=== PATIENT | male | born 2000 | race Caucasian/White ===

== ENCOUNTER 2020-11-01 06:57 | Emergency (ER) | payer OTHER ==
[2020-11-01 07:09] VITALS: BP 134/57
[2020-11-01 07:39] LABS: RAPID STREP SCREEN Negative (Negative)
--- NOTE | 2020-11-01 07:50 | ED Physician Documentation ---
History of Present Illness - Stated complaint Stated Complaint: THROAT PX/EAR PX/RUNNY NOSE - Chief complaint Chief Complaint: Heent - History obtained from History obtained from: Patient - Additonal information Additional information: Patient comes emergency department chief complaint of runny nose, sore throat, and cough. He states that he was up most the night last night because he was uncomfortable. He denies measured fevers. No chills. He states symptoms started 2 nights ago while he was on an overnight watch at his job at the [employer]. He also complains that his ears feel very "pressurized", especially on the left side. He states that he has not had any known sick contacts other than his who had a stuffy nose a few days ago. No Covid exposure. Patient is vaccinated. He states he is mainly here for a work note and also, he is concerned about strep pharyngitis because he states he gets it "a lot". No other complaints at this time. Review of Systems Ten Systems: 10 systems reviewed and negative Constitutional: reports: Reviewed and negative Eyes: reports: Reviewed and negative Ears: reports: Ear pain (Pressure) Nose: reports: Rhinorrhea / runny nose, Congestion Throat: reports: Sore throat Cardiac: reports: Reviewed and negative Respiratory: reports: Reviewed and negative GI: reports: Reviewed and negative : reports: Reviewed and negative Skin: reports: Reviewed and negative Musculoskeletal: reports: Reviewed and negative Neurologic: reports: Reviewed and negative Psychiatric: reports: Reviewed and negative Endocrine: reports: Reviewed and negative Immunocompromised: reports: Reviewed and negative PD PAST MEDICAL HISTORY - Past Medical History Cardiovascular: None Respiratory: None Neuro: None Endocrine/Autoimmune: None GI: None : None HEENT: None Psych: None Musculoskeletal: None Derm: None - Past Surgical History Past Surgical History: No - Present Medications Home Medications: Ambulatory Orders Medication Instructions Recorded Confirmed No Known Home Medications 11/01/20 11/01/20 - Allergies Allergies/Adverse Reactions: Allergies Allergy/AdvReac Type Severity Reaction Status Date / Time No Known Drug Allergies Allergy Verified 11/01/20 07:06 - Social History Does the pt smoke?: No Smoking Status: Never smoker Does the pt drink ETOH?: Yes Does the pt have substance abuse?: No - Immunizations Immunizations are current?: No PD ED PE NORMAL - Vitals Vital signs reviewed: Yes - General General: Alert and oriented X 3, No acute distress - HEENT HEENT: Atraumatic, PERRL, EOMI, Ears normal, Moist mucous membranes, Pharynx benign - Neck Neck: Supple, no meningeal sign - Cardiac Cardiac: RRR, No murmur, Strong equal pulses - Respiratory Respiratory: No respiratory distress, Clear bilaterally - Derm Derm: Warm and dry - Extremities Extremities: No deformity - Neuro Neuro: Alert and oriented X 3 - Psych Psych: Normal mood, Normal affect Results - Vitals Vitals: Vital Signs - 24 hr 11/01/20 07:06 Temperature 36.2 C L Heart Rate 86 Respiratory 18 Rate Blood Pressure 134/57 H O2 Saturation 97 Oxygen O2 Source Room air - Labs Labs: Laboratory Tests 11/01/20 07:20 Group A Strep Rapid Negative PD MEDICAL DECISION MAKING - ED course Complexity details: reviewed results, re-evaluated patient, considered differential, d/w patient ED course: Patient was worked up with strep test, which was negative. He was given a work note and indications for return and follow-up. Departure - Departure Disposition: 01 Home, Self Care Clinical Impression: Upper respiratory infection Qualifiers: URI type: unspecified viral URI Qualified Code(s): J06.9 - Acute upper respiratory infection, unspecified Condition: Stable Instructions: ED URI Viral Comments: Your strep test is negative. Forms: Activity restrictions
== END 2020-11-01 08:07 | disposition home or self-care (01) ==
LOC: ED 06:57
DX: J06.9 Acute upper respiratory infection, unspecified (principal); B97.89 Other viral agents as the cause of diseases classified elsewhere
CPT/HCPCS: 87070; 87430; 99283

== ENCOUNTER 2021-08-31 10:11 | Emergency (ER) | payer OTHER ==
[2021-08-31 13:26] VITALS: BP 148/60
--- NOTE | 2021-08-31 13:49 | ED Physician Documentation ---
PD HPI URI - Stated complaint Stated Complaint: RUNNY NOSE/SORE THROAT - Chief complaint Chief Complaint: Heent - History obtained from History obtained from: Patient - History of Present Illness Pain level max: 5 Pain level now: 4 Associated symptoms: Nasal congestion, Rhinorrhea, Sore throat, Dry cough. No: Fever, Chills Contributing factors: Sick contact (Entire family sick with same) Recently seen: Not recently seen - Additional information Additional information: Patient is a 21-year-old male who presents to the emergency department with cough, congestion, sore throat for the past 3 days. Entire family is sick with same. Worse with swallowing. He is taking ibuprofen without relief Patient states that he has a history of recurrent strep pharyngitis. Has not taken a COVID test. Review of Systems Constitutional: denies: Fever Nose: reports: Rhinorrhea / runny nose, Congestion Throat: reports: Sore throat Respiratory: reports: Cough GI: denies: Vomiting, Diarrhea Skin: denies: Rash Musculoskeletal: denies: Neck pain, Back pain Neurologic: denies: Headache PD PAST MEDICAL HISTORY - Past Medical History Cardiovascular: None Respiratory: None Neuro: None Endocrine/Autoimmune: None GI: None : None HEENT: None Psych: None Musculoskeletal: None Derm: None - Past Surgical History Past Surgical History: No - Present Medications Home Medications: Ambulatory Orders Medication Instructions Recorded Confirmed Benzonatate [Tessalon] 200 mg PO TID PRN #30 cap 08/31/21 Cetirizine HCl/Pseudoephedrine 1 each PO BID PRN #30 ea 08/31/21 [Zyrtec-D Tablet] - Allergies Allergies/Adverse Reactions: Allergies Allergy/AdvReac Type Severity Reaction Status Date / Time No Known Drug Allergies Allergy Verified 08/31/21 10:21 - Social History Does the pt smoke?: No Smoking Status: Never smoker Does the pt drink ETOH?: Yes Does the pt have substance abuse?: No - Immunizations Immunizations are current?: No PD ED PE NORMAL - Vitals Vital signs reviewed: Yes - General General: Alert and oriented X 3, No acute distress - HEENT HEENT: PERRL, Ears normal, Moist mucous membranes, Other (Mild posterior pharyngeal erythema without tonsillar exudates. Uvula midline. Normal phonation. No trismus) - Neck Neck: Supple, no meningeal sign, No adenopathy - Cardiac Cardiac: RRR, Strong equal pulses - Respiratory Respiratory: No respiratory distress, Clear bilaterally - Abdomen Abdomen: Soft, Non tender, Non distended - Derm Derm: Warm and dry, No rash - Extremities Extremities: No edema - Neuro Neuro: Alert and oriented X 3 - Psych Psych: Normal mood, Normal affect Results - Vitals Vitals: Vital Signs - 24 hr 08/31/21 08/31/21 10:20 13:24 Temperature 37.1 C 36.6 C Heart Rate 67 84 Respiratory 14 17 Rate Blood Pressure 136/63 H 148/60 H O2 Saturation 97 98 Oxygen O2 Source Room air - Labs Labs: Laboratory Tests 08/31/21 13:23 Group A Strep Rapid Negative PD MEDICAL DECISION MAKING - ED course Complexity details: reviewed results, re-evaluated patient, considered differential, d/w patient ED course: Patient is well-appearing, nontoxic. Afebrile. Rapid strep is negative. COVID testing sent. Entire family sick with same. We will continue supportive care and have him follow-up with his doctor for further care. Patient counseled regarding signs and symptoms for which I believe and urgent re-evaluation would be necessary. Patient with good understanding of and agreement to plan and is comfortable going home at this time This document was made in part using voice recognition software. While efforts are made to proofread this document, sound alike and grammatical errors may occur. Departure - Departure Disposition: 01 Home, Self Care Clinical Impression: Viral URI Condition: Good Instructions: ED Viral Syndrome Follow-Up: your,doctor in 1 week [Other] Prescriptions: Benzonatate [Tessalon] 200 mg PO TID PRN #30 cap PRN Reason: Cough Cetirizine HCl/Pseudoephedrine [Zyrtec-D Tablet] 1 each PO BID PRN #30 ea PRN Reason: nasal congestion Comments: Please follow-up with your doctor for further care. Return if you worsen. Drink plenty of fluids and rest. Your rapid strep is negative. You have a COVID test pending. You can check the results of this tomorrow on the patient portal. No work until you have a negative COVID test. Isolation precautions for COVID Day 0 is your first day of symptoms or a positive viral test. Day 1 is the first full day after your symptoms developed or your test specimen was collected. If you have COVID-19 or have symptoms, isolate for at least 5 days. IF YOU: Tested positive for COVID-19 or have symptoms, regardless of vaccination status Stay home for at least 5 days Stay home for 5 days and isolate from others in your home. Wear a well-fitting mask if you must be around others in your home. Do not travel. Ending isolation if you had symptoms End isolation after 5 full days if you are fever-free for 24 hours (without the use of fever-reducing medication) and your symptoms are improving. Ending isolation if you did NOT have symptoms End isolation after at least 5 full days after your positive test. If you got very sick from COVID-19 or have a weakened immune system You should isolate for at least 10 days. Consult your doctor before ending is olation. Take precautions until day 10 Wear a well-fitting mask Wear a well-fitting mask for 10 full days any time you are around others inside your home or in public. Do not go to places where you are unable to wear a mask. Do not travel Do not travel until a full 10 days after your symptoms started or the date your positive test was taken if you had no symptoms. Avoid being around people who are more likely to get very sick from COVID-19. Discharge Date/Time: 08/31/21 14:22
[2021-08-31 13:53] LABS: RAPID STREP SCREEN Negative (Negative)
--- NOTE | 2021-09-01 18:59 | ED Physician Documentation ---
ED Addendum - Addendum Addendum: 09/01/21 18:59 Patient request that the medication she sent to [facility] in [place] rather than [facility]. His 's strep test came back positive for group F strep, therefore we will add antibiotics as well Departure - Departure Disposition: 01 Home, Self Care Clinical Impression: Viral URI Condition: Good Instructions: ED Viral Syndrome Follow-Up: your,doctor in 1 week [Other] Prescriptions: Penicillin V Potassium 500 mg PO Q6HR #40 tablet Benzonatate [Tessalon] 200 mg PO TID PRN #30 cap PRN Reason: Cough Cetirizine HCl/Pseudoephedrine [Zyrtec-D Tablet] 1 each PO BID PRN #30 ea PRN Reason: nasal congestion Comments: Please follow-up with your doctor for further care. Return if you worsen. Drink plenty of fluids and rest. Your rapid strep is negative. You have a COVID test pending. You can check the results of this tomorrow on the patient portal. No work until you have a negative COVID test. Isolation precautions for COVID Day 0 is your first day of symptoms or a positive viral test. Day 1 is the first full day after your symptoms developed or your test specimen was collected. If you have COVID-19 or have symptoms, isolate for at least 5 days. IF YOU: Tested positive for COVID-19 or have symptoms, regardless of vaccination status Stay home for at least 5 days Stay home for 5 days and isolate from others in your home. Wear a well-fitting mask if you must be around others in your home. Do not travel. Ending isolation if you had symptoms End isolation after 5 full days if you are fever-free for 24 hours (without the use of fever-reducing medication) and your symptoms are improving. Ending isolation if you did NOT have symptoms End isolation after at least 5 full days after your positive test. If you got very sick from COVID-19 or have a weakened immune system You should isolate for at least 10 days. Consult your doctor before ending isolation. Take precautions until day 10 Wear a well-fitting mask Wear a well-fitting mask for 10 full days any time you are around others inside your home or in public. Do not go to places where you are unable to wear a mask. Do not travel Do not travel until a full 10 days after your symptoms started or the date your positive test was taken if you had no symptoms. Avoid being around people who are more likely to get very sick from COVID-19. Discharge Date/Time: 08/31/21 14:22
== END 2021-08-31 14:22 | disposition home or self-care (01) ==
LOC: ED 10:11
DX: J06.9 Acute upper respiratory infection, unspecified (principal); Z20.822 Contact with and (suspected) exposure to COVID-19
CPT/HCPCS: 87070; 87430; 99283

== ENCOUNTER 2021-10-10 11:58 | Emergency (ER) | payer OTHER ==
[2021-10-10 12:06] VITALS: BP 144/66
[2021-10-10] MEDS ORDERED: NIRMATRELVIR/RITONAVIR PREPACK PO STA (12:25)
--- NOTE | 2021-10-10 12:30 | ED Physician Documentation ---
History of Present Illness - Stated complaint Stated Complaint: THORAT PX/COUGH/TASTE AND SMELL LOSS - Chief complaint Chief Complaint: Resp - Additonal information Additional information: 21-year-old male presents emergency department for evaluation of dry cough and acute loss of taste and smell that began this morning. His at home has had some cough and congestion for the preceding few days. She has tested negative for COVID-19. He presents to the emergency department concerned that he has COVID despite his 's negative test. She presents here for treatment as well Patient is vaccinated though not boosted. No history of hypertension, diabetes or immune compromise. No tobacco history. He is obese. Review of Systems Constitutional: reports: Myalgias, Fatigue. denies: Fever Nose: reports: Other (Loss of taste and smell) Throat: reports: Sore throat Cardiac: denies: Chest pain / pressure, Palpitations Respiratory: reports: Cough. denies: Dyspnea, Hemoptysis, Wheezing GI: reports: Reviewed and negative : reports: Reviewed and negative Skin: reports: Reviewed and negative PD PAST MEDICAL HISTORY - Past Medical History Cardiovascular: None Respiratory: None Neuro: None Endocrine/Autoimmune: None GI: None : None HEENT: None Psych: None Musculoskeletal: None Derm: None - Past Surgical History Past Surgical History: No - Present Medications Home Medications: Ambulatory Orders Medication Instructions Recorded Confirmed DULoxetine [Cymbalta] 40 mg PO DAILY 10/10/21 10/10/21 - Allergies Allergies/Adverse Reactions: Allergies Allergy/AdvReac Type Severity Reaction Status Date / Time No Known Drug Allergies Allergy Verified 10/10/21 12:06 - Social History Does the pt smoke?: No Smoking Status: Never smoker Does the pt drink ETOH?: Yes Does the pt have substance abuse?: No - Immunizations Immunizations are current?: No PD ED PE NORMAL - General General: Alert and oriented X 3, No acute distress, Well developed/nourished - HEENT HEENT: Atraumatic, Ears normal, Moist mucous membranes - Neck Neck: Supple, no meningeal sign, No adenopathy - Cardiac Cardiac: RRR, No murmur - Respiratory Respiratory: No respiratory distress, Clear bilaterally - Back Back: No spinal TTP - Derm Derm: Normal color, Warm and dry - Extremities Extremities: No deformity - Neuro Neuro: Alert and oriented X 3, 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 Eye Opening: Spontaneous Motor: Obeys Commands Verbal: Oriented GCS Score: 15 Results - Vitals Vitals: Vital Signs - 24 hr 10/10/21 10/10/21 12:03 12:49 Temperature 36.3 C L 36.3 C L Heart Rate 92 92 Respiratory 16 16 Rate Blood Pressure 144/66 H 144/66 H O2 Saturation 98 98 Oxygen O2 Source Room air - Labs Labs: Laboratory Tests 10/10/21 12:30 SARS-CoV-2 (PCR) NOT DETECTED PD MEDICAL DECISION MAKING - ED course Complexity details: considered differential, d/w patient ED course: Well-appearing 19-year-old male presents emergency department for evaluation of acute onset cough loss of taste and smell that began this morning. His at home has been sick with cough and congestion for the preceding few days. He is vaccinated for COVID-19. He does not carry a history of diabetes or immune compromise or known problems with his heart or lungs however he is obese. Given this finding I did discuss with him the option of EUA use of pack Slo-Bid for suspected outpatient treatment of COVID-19. He would like to accept this treatment. COVID swab is pending. Though given the loss of taste and smell, i am very suspicious for COVID 19 infection I expect that it will be positive. Patient Is advised to main quarantine until test results are known. Otherwise emergent return precautions and routine care was discussed 1400: res PCR neg for covid. findings discussed with pt. advised not to take paxlovid. continue to treat as common vold Departure - Departure Disposition: 01 Home, Self Care Clinical Impression: URI (upper respiratory infection) Qualifiers: URI type: unspecified viral URI Qualified Code(s): J06.9 - Acute upper respiratory infection, unspecified Condition: Stable Record reviewed to determine appropriate education?: Yes Instructions: ED Viral Syndrome Comments: Daniele you came to the emergency department today because you lost your sense of taste and smell this morning. This is typical with recent COVID-19 infections. We do have a COVID test pending on you but will start you on a medication called pack Slo-Bid which is FDA approved emergency use authorization for outpatient treatment of COVID-19 infections. We will notify you if your swab is positive. In general you do need to maintain quarantine for about the next week. Drink plenty of fluids and water. Ibuprofen or Tylenol [id number] for body aches. Any throat lozenge can be helpful. If you find that your symptoms are not improving, you have severe chest pain or shortness of air then please return immediately to the ER for second evaluation Discharge Date/Time: 10/10/21 12:49
== END 2021-10-10 12:49 | disposition home or self-care (01) ==
LOC: ED 11:58
DX: J06.9 Acute upper respiratory infection, unspecified (principal); Z20.822 Contact with and (suspected) exposure to COVID-19
CPT/HCPCS: 87635; 99282; 99283; J3490

== ENCOUNTER 2022-04-18 09:14 | Emergency (ER) | payer OTHER ==
--- NOTE | 2022-04-18 10:37 | XRAY Report ---
PROCEDURE: Knee 4 View RT INDICATIONS: Trauma TECHNIQUE: 3 views of the right knee(s) were acquired. COMPARISON: None. FINDINGS: Bones: No fractures or dislocations. No suspicious bony lesions. Soft tissues: No joint effusion. No suspicious soft tissue calcifications. IMPRESSION: No acute osseous abnormality. If clinical symptoms persist, consider a follow-up exam in 7-10 days, or advanced imaging such as MRI if there is clinical concern for meniscal or ligamentous injuries. Reviewed by: Arvin Burger MD on 04/18/2022 9:36 AM [facility] Approved by: Arvin Burger MD on 04/18/2022 9:36 AM [facility] Station ID: [id number]
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
[2022-04-18 12:58] VITALS: BP 109/46
== END 2022-04-18 12:58 | disposition home or self-care (01) ==
LOC: ED 09:14
DX: S80.01XA Contusion of right knee, initial encounter (principal); W17.89XA Other fall from one level to another, initial encounter
CPT/HCPCS: 99283

== ENCOUNTER 2022-06-29 16:10 | Emergency (ER) | payer OTHER ==
--- NOTE | 2022-06-29 16:20 | ED Physician Documentation ---
PD HPI NVD - Stated complaint Stated Complaint: BODYACHES/VOMITING/COUGH - Chief complaint Chief Complaint: Abd Pain - History obtained from History obtained from: Patient - History of Present Illness Timing - onset: Yesterday Timing - duration: Days (2) Timing - details: Abrupt onset, Still present (Onset yesterday of body aches, cough, general weakness and nausea. Continues today with now vomiting and some diarrhea and crampy abdominal pain. General weakness and feeling lightheaded this afternoon.) Associated symptoms: Fever, Abdominal pain (diffuse cramping). No: Hematemesis, Melena Contributing factors: No: Sick contact, Bad food, Alcohol use Similar symptoms before: Has not had sx before Recently seen: Not recently seen Review of Systems Constitutional: reports: Fever, Chills, Myalgias (since yesterday), Fatigue Nose: reports: Congestion, Sinus pressure / pain Throat: denies: Sore throat Cardiac: denies: Chest pain / pressure, Palpitations Respiratory: reports: Dyspnea, Cough, Wheezing GI: reports: Abdominal Pain, Nausea, Vomiting, Diarrhea. denies: Hematemesis, B loody / black stool : denies: Dysuria Neurologic: reports: Generalized weakness. denies: Syncope, Altered mental status, Headache PD PAST MEDICAL HISTORY - Past Medical History Cardiovascular: None Respiratory: None Neuro: None Endocrine/Autoimmune: None GI: None : None HEENT: None Psych: None Musculoskeletal: None Derm: None - Past Surgical History Past Surgical History: No - Present Medications Home Medications: Ambulatory Orders Medication Instructions Recorded Confirmed DULoxetine [Cymbalta] 40 mg PO DAILY 10/10/21 10/10/21 Diphenoxylate/Atropine [Lomotil] 1 each PO QID PRN #12 tablet 06/29/22 HYDROcod/ACETAM 5/325 [[place] 5/325] 1 ea PO Q6H PRN #12 tablet 06/29/22 Ondansetron Odt [Zofran] 4 mg TL Q6H PRN #10 tablet 06/29/22 - Allergies Allergies/Adverse Reactions: Allergies Allergy/AdvReac Type Severity Reaction Status Date / Time No Known Drug Allergies Allergy Verified 06/29/22 16:17 - Social History Does the pt smoke?: No Smoking Status: Never smoker Does the pt drink ETOH?: Yes Does the pt have substance abuse?: No - Immunizations Immunizations are current?: No PD ED PE NORMAL - Vitals Vital signs reviewed: Yes - General General: Alert and oriented X 3, Well developed/nourished, Other (appears uncomfortable due to nausea and abd cramping. ) - HEENT HEENT: Ears normal, Pharynx benign. No: Moist mucous membranes - Neck Neck: Supple, no meningeal sign, No adenopathy - Cardiac Cardiac: No: RRR (regular but tachycardic) - Respiratory Respiratory: No: Clear bilaterally - Abdomen Abdomen: Other (mildly distended. Generally tender to palpation and percussion, nonfocal. ). No: Normal bowel sounds (decreased) Results - Vitals Vitals: Vital Signs - 24 hr 06/29/22 06/29/22 06/29/22 16:14 16:54 17:59 Temperature 36.4 C L Heart Rate 108 H 98 90 Respiratory 16 20 22 Rate Blood Pressure 128/64 125/58 L O2 Saturation 97 96 Oxygen O2 Source Room air - Labs Labs: Laboratory Tests 06/29/22 06/29/22 06/29/22 16:30 16:30 16:41 WBC 15.4 H RBC 5.33 Hgb 14.8 Hct 46.1 MCV 86.5 MCH 27.8 MCHC 32.1 RDW 13.9 Plt Count 351 MPV 9.9 Neut # (Auto) 13.2 H Lymph # (Auto) 1.3 L [place] # (Auto) 0.6 Eos # (Auto) 0.2 Baso # (Auto) 0.0 Absolute Nucleated RBC 0.00 Nucleated RBC % 0.0 Sodium 141 Potassium 4.0 Chloride 104 Carbon Dioxide 27 Anion Gap 10.0 BUN 21 H Creatinine 1.1 Estimated GFR (MDRD) 83 L Glucose 98 Calcium 9.4 Total Bilirubin 0.8 AST 97 H ALT 194 H Alkaline Phosphatase 77 Total Protein 8.9 H Albumin 4.6 Globulin 4.3 H Albumin/Globulin Ratio 1.1 Lipase 34 Nasal Adenovirus (PCR) NOT DETECTED Nasal B. parapertussis DNA (PCR) NOT DETECTED Nasal Coronavir 229E PCR NOT DETECTED Nasal Coronavir HKU1 PCR NOT DETECTED Nasal Coronavir NL63 PCR NOT DETECTED Nasal Coronavir OC43 PCR NOT DETECTED Nasal Enterovir/Rhinovir PCR DETECTED A Nasal Influenza B PCR NOT DETECTED Nasal Influenza A PCR NOT DETECTED Nasal Parainfluen 1 PCR NOT DETECTED Nasal Parainfluen 2 PCR NOT DETECTED Nasal Parainfluen 3 PCR NOT DETECTED Nasal Parainfluen 4 PCR NOT DETECTED Nasal RSV (PCR) NOT DETECTED Nasal B.pertussis DNA PCR NOT DETECTED Nasal C.pneumoniae (PCR) NOT DETECTED Jared Human Metapneumo PCR NOT DETECTED Nasal M.pneumoniae (PCR) NOT DETECTED Nasal SARS-CoV-2 (PCR) NOT DETECTED PD Medical Decision Making - ED course Complexity details: reviewed results, considered differential (Patient with onset of general body aches, fevers, chills, cough and congestion yesterday into last night. Worse today and associated with vomiting and diarrhea overnight. General abdominal pain this morning. This is continued through the day. Feeling weak and tired.), d/w patient Reviewed Lab Results: The patient's basic chemistry panel showed normal electrolytes. His kidney function is adequate. His white count is elevated at 15,000. This may still correspond to a viral syndrome. However on recheck of his abdomen he still significantly tender to palpation and percussion diffusely. I am concerned there may have been some secondary process associated with the vomiting or so even though the majority of the symptoms sound like a viral syndrome. Shared decision with the patient is to get a CT scan at this point to better evaluate the abdomen to ensure were not missing a secondary process. ED course: The patient's abdomen is still a bit tender but not as much as prior. His CT scan did not show any acute abnormality. He did show distended gastrum. However no signs of obstruction, perforation, significant colitis, appendicitis. The patient is able to drink some Gatorade and some fluids but is doing small sips at a time. He is feeling a little bit bloated after having a larger amount. I told him his CT did show the distended abdomen stomach and will likely not tolerate large amounts at a time. Small frequent sips. He did receive IV fluids here so should maintain hydration okay with small amounts of fluid overnight. No food overnight. Assume more regular diet tomorrow if tolerated. The patient feels comfortable with heading home. He states he felt a little lightheaded from the last dose of pain medicine and so we will give a few more minutes for him to improve. We can supplement with famotidine and Lomotil antidiarrheal as well. The patient will be discharged home in stable condition with prescriptions for antiemetic and antidiarrheal and pain medicine. These will go to [facility]. The patient did over get a ride here and he has a ride home. I will give him a work note as well for today and tomorrow. Departure - Departure Disposition: Home, Self Care Clinical Impression: Acute viral syndrome, Nausea vomiting and diarrhea Abdominal pain Qualifiers: Abdominal location: generalized Qualified Code(s): R10.84 - Generalized abdominal pain Condition: Stable Record reviewed to determine appropriate education?: Yes Instructions: ED Viral Syndrome, ED Nausea Vomiting Follow-Up: [facility] [place] [Provider Group] Prescriptions: Diphenoxylate/Atropine [Lomotil] 1 each PO QID PRN #12 tablet PRN Reason: Diarrhea HYDROcod/ACETAM 5/325 [[place] 5/325] 1 ea PO Q6H PRN #12 tablet PRN Reason: Pain Ondansetron Odt [Zofran] 4 mg TL Q6H PRN #10 tablet PRN Reason: Nausea / Vomiting Comments: This does seem like a viral syndrome. Your respiratory panel was positive for a simple virus called rhinovirus. This can still cause flulike symptoms like you are having with the aches, cough, sore throat, nausea and vomiting and diarrhea. The main focus is to try to treat symptoms. The vomiting and diarrhea should decrease predominantly over the 1 or 2 days. The general viral syndrome will take 5 to 7 days. I wrote prescriptions for ondansetron for nausea and Lomotil for diarrhea. Small frequent fluids. I would avoid any solid foods overnight and into tomorrow. I would also suggest just small amounts of fluid as your stomach itself is likely to be somewhat stagnant and not want to large volume. Tylenol every 4-6 hours if needed for pains. Add pain medicine if needed for worse cramps. Off work for the next 2 to 3 days presumedly. Recheck if not improving well with regard to nausea and belly pain within a day or 2. Return if worse. I sent your prescriptions to [facility] pharmacy in [place]. I am prescribing a short course of narcotic pain medication for you. These are potentially dangerous and addictive medications that should be used carefully. These medications may constipate you. Take an [id number] stool softener such as docusate twice daily with plenty of water while taking these medicati ons. If you go 24 hours without a bowel movement, take [id number] MiraLAX, per package instructions. Do not drink or drive while taking these medications. If you received narcotic or sedating medications while in the emergency department do not drive for 24 hours. Store this medication in a safe, secure place and out of reach of children. It is a violation of federal law to give or sell this medication to another person or to use in a manner other than prescribed. The ED will not refill narcotic prescriptions, including prescriptions lost or stolen. You can dispose of unwanted medications at the [facility]'s office or at several pharmacies such as [facility]. Forms: Activity restrictions
[2022-06-29] MEDS ORDERED: SODIUM CHLORIDE 0.9% 1,000 ML IV STA (16:37)
[2022-06-29] MEDS ORDERED: ALBUTEROL NEB 2.5 MG/3 ML INH STA (16:37)
[2022-06-29] MEDS ORDERED: ONDANSETRON 4 MG/2 ML VIAL IVP STA (16:37)
[2022-06-29] MEDS ORDERED: KETOROLAC 15 MG/ML VIAL IVP STA ×2 (16:37→18:54)
[2022-06-29] MEDS ORDERED: MORPHINE 2 MG/ML CARPUJECT IVP STA (16:40)
[2022-06-29 16:48] LABS: BASOPHILS % (AUTO) 0.3 %; EOSINOPHILS # (AUTO) 0.2 10^3/uL (0.0-0.7); EOSINOPHILS % (AUTO) 1.5 %; HCT - HEMATOCRIT 46.1 % (42.0-52.0); HGB - HEMOGLOBIN 14.8 g/dL (14.0-18.0); LYMPHOCYTES # (AUTO) 1.3 10^3/uL (1.5-3.5); LYMPHOCYTES % (AUTO) 8.6 %; MEAN CORPUSCULAR HEMOGLOBIN 27.8 pg (27.0-31.0); MEAN CORPUSCULAR HGB CONC 32.1 g/dL (32.0-36.0); MEAN CORPUSCULAR VOLUME 86.5 fL (80.0-94.0); MEAN PLATELET VOLUME 9.9 fL (7.4-11.4); MONOCYTES # (AUTO) 0.6 10^3/uL (0.0-1.0); MONOCYTES % (AUTO) 3.9 %; NEUTROPHILS # (AUTO) 13.2 10^3/uL (1.5-6.6); NEUTROPHILS % (AUTO) 85.4 %; PLT - PLATELET COUNT 351 10^3/uL (130-450); RED BLOOD COUNT 5.33 10^6/uL (4.70-6.10); RED CELL DISTRIBUTION WIDTH 13.9 % (12.0-15.0); WHITE BLOOD COUNT 15.4 x10^3/uL (4.8-10.8)
[2022-06-29 17:02] LABS: ALBUMIN 4.6 g/dL (3.2-5.5); ALBUMIN/GLOBULIN RATIO 1.1 (1.0-2.2); BILIRUBIN,TOTAL 0.8 mg/dL (0.2-1.0); CALCIUM 9.4 mg/dL (8.5-10.3); CREATININE 1.1 mg/dL (0.6-1.2); TOTAL PROTEIN 8.9 g/dL (6.7-8.2)
[2022-06-29 17:39] LABS: B. PARAPERTUSSIS- RESP PCR PAN NOT DETECTED; B. PERTUSSIS- RESP PCR PANEL NOT DETECTED; C. PNEUMONIAE- RESP PCR PANEL NOT DETECTED; CORONAVIRUS 229E-RESP PCR NOT DETECTED; CORONAVIRUS HKU1-RESP PCR NOT DETECTED; CORONAVIRUS NL63-RESP PCR NOT DETECTED; CORONAVIRUS OC43-RESP PCR NOT DETECTED; HUMAN METAPNEUMOVIRUS NOT DETECTED; INFLUENZA A- RESP PCR PANEL NOT DETECTED; INFLUENZA B - RESP PCR PANEL NOT DETECTED; M. PNEUMONIAE- RESP PCR PANEL NOT DETECTED; PARAINFLUENZA VIRUS 1 NOT DETECTED; PARAINFLUENZA VIRUS 2 NOT DETECTED; PARAINFLUENZA VIRUS 3 NOT DETECTED; PARAINFLUENZA VIRUS 4 NOT DETECTED; RHINOVIRUS/ENTEROVIRUS DETECTED; RSV- RESP PCR PANEL NOT DETECTED; SARS-CoV-2 -RESP PCR PANEL NOT DETECTED
[2022-06-29] MEDS ORDERED: HYDROmorphone 1 MG/ML CARPUJECT IVP STA (17:46)
[2022-06-29] MEDS ORDERED: iohexoL-300 100 ML VIAL ONE (18:03)
[2022-06-29] MEDS ORDERED: iohexoL-300 100 ML VIAL IVP ONE (18:27)
--- NOTE | 2022-06-29 18:34 | CT Report ---
PROCEDURE: ABDOMEN/PELVIS W INDICATIONS: diffuse abd pain, vomiting CONTRAST: : 100ml omni 300 TECHNIQUE: After the administration of IV contrast, 5 mm thick sections acquired from the diaphragms to the symp hysis. 5 mm thick coronal and sagittal reformats were acquired. For radiation dose reduction, the f ollowing was used: automated exposure control, adjustment of mA and/or kV according to patient size. COMPARISON: None. FINDINGS: Image quality: Excellent. Lung bases and heart: Mild dependent atelectasis can be seen at the right lung base. Liver: Diffuse fatty liver infiltration can be seen. The liver demonstrates an large size. No focal l iver lesion is seen. Gallbladder and biliary tree: Within normal limits. Spleen: Unremarkable. Pancreas: Unremarkable. Adrenals: Unremarkable. Kidneys and ureters: Unremarkable. Bowel and peritoneum: The stomach is moderately fluid distended. No bowel distension. No pathologic free fluid. A normal appendix is seen. Lymph nodes: No central or retroperitoneal adenopathy. Vessels: Unremarkable. PELVIS Reproductive organs: Unremarkable. Bladder: Unremarkable. Lymph nodes: Unremarkable. Bones: No aggressive osseous abnormality. This patient has transitional anatomy. For the purposes of this examination, the level with last pair of ribs is considered to be T12. By the summary scheme, th e L5 level is partially lumbarized. Other: There is a fat-containing right inguinal hernia. IMPRESSION: The stomach is moderately fluid distended. Please consider gastritis. No dilated loops of bowel are seen. Normal appendix. Additional findings: Enlarged, fatty liver Transitional lumbar anatomy Fat-containing right inguinal hernia Reviewed by: Red Kahn MD on 06/29/2022 5:33 PM LOBO Approved by: Red Kahn MD on 06/29/2022 5:33 PM LOBO Station ID: [id number]
[2022-06-29] MEDS ORDERED: FAMOTIDINE 20 MG/2 ML VIAL IVP STA (18:55)
[2022-06-29] MEDS ORDERED: DIPHENOX/ATROPINE 2.5/0.025 MG TABLET PO STA (18:55)
[2022-06-29 19:59] VITALS: BP 122/64
== END 2022-06-29 20:19 | disposition home or self-care (01) ==
LOC: ED 16:10
DX: B34.8 Other viral infections of unspecified site (principal); Z20.822 Contact with and (suspected) exposure to COVID-19
CPT/HCPCS: 36415; 74177; 80053; 83690; 85025; 87633; 94640; 96361; 96374; 96375; 99284; A9270; J1170; Q9967